=== PATIENT | male | born 1950 | race Caucasian/White ===

== ENCOUNTER → 2018-01-22 08:53 | Outpatient (CLI) | payer MEDICARE ==
[~2018-01-22] VITALS: Ht 182.9 cm; Wt 96.2 kg
[2018-01-22 10:10] VITALS: Ht 182.9 cm; Wt 96.2 kg
== END | disposition home or self-care (01) ==
LOC: D.FANS 08:53
DX: E11.9 Type 2 diabetes mellitus without complications (principal)